=== PATIENT | female | born 1980 | race Hispanic/Latino ===

== ENCOUNTER → 2022-07-01 | Outpatient (CLI) | payer BC | END | disposition home or self-care (01) | LOC: RAH 16:40 | PROVIDERS: ATTEND Clinical Nurse Specialist Family Health | DX: K59.00 Constipation, unspecified (principal); K60.2 Anal fissure, unspecified | CPT/HCPCS: 74018 ==

== ENCOUNTER → 2022-08-02 | Outpatient (CLI) | payer BC | END | disposition home or self-care (01) | LOC: RAH 09:14 | PROVIDERS: ATTEND Internal Medicine Gastroenterology | DX: R10.32 Left lower quadrant pain (principal); K44.9 Diaphragmatic hernia without obstruction or gangrene; N32.89 Other specified disorders of bladder; M47.815 Spondylosis without myelopathy or radiculopathy, thoracolumbar region | CPT/HCPCS: 74176 ==

== ENCOUNTER → 2023-04-23 | Outpatient (CLI) | payer BC | END | disposition home or self-care (01) | LOC: RAH 15:38 | PROVIDERS: ATTEND Internal Medicine | DX: N30.90 Cystitis, unspecified without hematuria (principal) | CPT/HCPCS: 76770 ==

== ENCOUNTER → 2023-05-13 | Outpatient (CLI) | payer BC | END | disposition home or self-care (01) | LOC: RAH 07:36 | PROVIDERS: ATTEND Internal Medicine | DX: M47.817 Spondylosis without myelopathy or radiculopathy, lumbosacral region (principal); M51.37 Other intervertebral disc degeneration, lumbosacral region; M48.07 Spinal stenosis, lumbosacral region; M47.814 Spondylosis without myelopathy or radiculopathy, thoracic region; M54.2 Cervicalgia; M54.50 Low back pain, unspecified; M06.9 Rheumatoid arthritis, unspecified; M79.7 Fibromyalgia | CPT/HCPCS: 72141; 72146; 72148 ==

== ENCOUNTER → 2023-09-01 | Outpatient (CLI) | payer BC | END | disposition home or self-care (01) | LOC: RAH 08:35 | DX: R22.1 Localized swelling, mass and lump, neck (principal) | CPT/HCPCS: 76536 ==

== ENCOUNTER → 2025-03-14 | Outpatient (CLI) | payer BC ==
--- NOTE | 2025-03-15 02:47 | HMCIMG ---
STUDY: X-RAY OF THE CERVICAL SPINE, 3 VIEWS HISTORY: Neck pain. TECHNIQUE: AP, lateral, and open-mouth odontoid views of the cervical spine are submitted for interpretation. COMPARISON: None provided. FINDINGS: Bones and joints: There is straightening of the normal cervical lordosis. Vertebral body heights and alignments are otherwise preserved without acute fracture or subluxation. Intervertebral disc spaces are maintained at the visualized levels. The odontoid process and lateral masses of C1 are intact. Soft tissues: Prevertebral soft tissues are within normal limits. No abnormal soft tissue calcification or radiopaque foreign body is identified. IMPRESSION: * Loss of the normal cervical lordosis, which may be related to positioning or muscular spasm. * No radiographic evidence of acute cervical spine fracture or malalignment. * MRI of the cervical spine may be helpful for further evaluation if symptoms persist or if there is concern for disc or neural element pathology. /[place]
--- NOTE | 2025-03-15 02:47 | HMCIMG ---
STUDY: X-RAY OF THE LUMBAR SPINE, 3 VIEWS HISTORY: Low back pain. TECHNIQUE: AP, lateral, and L5-S1 spot views of the lumbar spine are submitted for interpretation. COMPARISON: None provided. FINDINGS: Bones and joints: Lumbar vertebral body heights and alignment are preserved without evidence of acute fracture or spondylolisthesis. Mild reduction of the intervertebral disc heights is noted at multiple levels, compatible with early degenerative disc disease. No destructive osseous lesion is identified. Soft tissues: Paraspinal soft tissues appear unremarkable. No abnormal soft tissue calcification or mass is seen. IMPRESSION: * Mild multilevel disc height loss in the lumbar spine, compatible with early degenerative disc disease. * No radiographic evidence of acute fracture or malalignment. * MRI of the lumbar spine is suggested for further evaluation of disc pathology and potential neural element compromise if clinically indicated. /[place]
--- NOTE | 2025-03-15 03:07 | HMCIMG ---
STUDY: X-RAY OF THE RIGHT HIP, 3 VIEWS HISTORY: Right hip pain. TECHNIQUE: AP view of the pelvis and AP and frog-leg lateral views of the right hip are submitted for interpretation. COMPARISON: None provided. FINDINGS: Bones and joints: Alignment of the right hip is anatomic. The right femoral head, neck, and acetabulum appear normal. Joint space is preserved without osteophytes, subchondral sclerosis, or cystic change. No acute fracture, dislocation, or aggressive osseous lesion is identified. Pelvis and sacroiliac joints: Pelvic ring is intact. Visualized left hip and bilateral sacroiliac joints appear unremarkable. Soft tissues: Periarticular soft tissues are unremarkable. No soft tissue swelling, calcification, or radiopaque foreign body is seen. IMPRESSION: * No acute osseous abnormality of the right hip or pelvis. /[place]
== END | disposition home or self-care (01) ==
LOC: RAH 12:32
DX: M70.61 Trochanteric bursitis, right hip (principal); M54.2 Cervicalgia; M51.369 Other intervertebral disc degeneration, lumbar region without mention of lumbar back pain or lower extremity pain
CPT/HCPCS: 72040; 72100; 73502